=== PATIENT | female | born 1980 | race Caucasian/White ===

== ENCOUNTER → 2017-02-28 | Outpatient (CLI) | payer MEDICAID ==
--- NOTE | 2017-03-01 08:52 | RADIOLOGY REPORT (SQ) ---
EXAM DESCRIPTION: U/S THYROID/SFT TISS HD NECK COMPLETED DATE/TIME: 02/28/2017 5:31 pm REASON FOR STUDY: IODINE-DEFICIENCY RELATED DIFFUSE (ENDEMIC) GOITER E01.0 IODINE-DEFICIENCY RELATE D DIFFUSE (ENDEMIC) GOITER COMPARISON: None. TECHNIQUE: Dynamic and static vail-scale images acquired of the thyroid gland. Selected additional c olor/power Doppler images recorded. All images stored to PACS. LIMITATIONS: None. FINDINGS: The thyroid gland is diffusely enlarged and heterogeneous, right lobe 4.8 x 2.2 x 2.2 cm i n size, left lobe 4.5 x 2 x 2 cm in size. Isthmus 7 mm in thickness. Diffuse increased color flow t hroughout the gland There is an ill-defined hypoechoic nodule in the left midpole thyroid, 7 mm in diameter. IMPRESSION: Diffusely heterogeneous thyroid gland with increased color flow, likely a goiter. Ill-defined hypoechoic nodule left midpole gland 7 mm in size. Follow-up ultrasound in 6 to 12 month s recommended. TECHNICAL DOCUMENTATION: JOB ID: [id number]- All Rights Reserved
== END ==
LOC: RAD 16:54
PROVIDERS: ATTEND Physician Assistant
DX: E01.0 Iodine-deficiency related diffuse (endemic) goiter (principal)
CPT/HCPCS: 76536

== ENCOUNTER → 2017-07-18 | Outpatient (CLI) | payer MEDICAID ==
--- NOTE | 2017-07-18 13:17 | RADIOLOGY REPORT (SQ) ---
EXAM DESCRIPTION: ANKLE LEFT COMPLETE COMPLETED DATE/TIME: 07/18/2017 12:47 pm REASON FOR STUDY: UNSPECIFIED INJURY OF RIGHT FOOT, INITIAL ENCOUNTER S99.921A UNSPECIFIED INJURY O F RIGHT FOOT, INITIAL ENCOUNTER COMPARISON: None. NUMBER OF VIEWS: Three views. TECHNIQUE: AP, lateral, and oblique radiographic images acquired of the left ankle. LIMITATIONS: None. FINDINGS: MINERALIZATION: Normal. BONES: No acute fracture or dislocation. No worrisome bone lesions. Small plantar calcaneal spur. JOINTS: No effusions. SOFT TISSUES: No soft tissue swelling. No foreign body. OTHER: No other significant finding. IMPRESSION: NO RADIOGRAPHIC EVIDENCE OF ACUTE INJURY. TECHNICAL DOCUMENTATION: JOB ID: [id number] [email or web address]- All Rights Reserved
== END ==
LOC: OD 12:24
PROVIDERS: ATTEND Nurse Practitioner Acute Care
DX: S99.921A Unspecified injury of right foot, initial encounter (principal); X58.XXXA Exposure to other specified factors, initial encounter

== ENCOUNTER 2017-08-24 08:23 | Emergency (ER) | payer MEDICAID ==
[2017-08-24 08:30] VITALS: BP 134/68
--- NOTE | 2017-08-24 09:15 | ER Document Report ---
HPI - HPI Pain Level: 4 Context: Patient is a 37-year-old female states she fell last evening. States that her dog got in her way and she tripped. She landed on her left knee and twisted her right ankle. She states that her left knee bothers her the most. She is pain with flexion and extension and weightbearing. She otherwise denies any numbness or tingling distal extremity.States that she is able to bear weight on her right ankle. Otherwise has a history of fibromyalgia. Past Medical History - Social History Smoking Status: Never Smoker Family History: Reviewed & Not Pertinent Vertical Provider Document - CONSTITUTIONAL Agree With Documented VS: Yes Notes: PHYSICAL EXAMINATION: GENERAL: Well-appearing, well-nourished and in no acute distress. Musculoskeletal: Normal range of motion no significant swelling, deformities or ecchymosis.except for left knee with pain with range of motion but able to flex to approximately 90 of the left knee. , no pitting or edema. no cyanosis. Hip non tender, stable. Left ankle no swelling or tenderness NEUROLOGICAL: Cranial nerves grossly intact. Normal speech, normal gait. Normal sensory, motor, and reflex exams. PSYCH: Normal mood, normal affect. SKIN: Warm, No active bleeding - INFECTION CONTROL TRAVEL OUTSIDE OF THE [place] IN LAST 30 DAYS: No - RESPIRATORY O2 Sat by Pulse Oximetry: 100 Course - Re-evaluation Re-evalutation: 08/24/17 09:52 Patient is a 37-year-old female is hemodynamically stable, no acute distress, afebrile. Presentation is consistent with contusion related to fall. Discussed with her that we can place patient on crutches and rest and ice will help with the swelling and discomfort in her knee. no evidence of a septic joint, gout flare, dislocation, or fracture on exam and imaging. Vitals wnl. At this time, I do not see an indication for labs or further imaging.Otherwise told her to follow-up with her primary care physician for repeat imaging if symptoms persist. Patient agrees with plan and stable for discharge home - Vital Signs Vital signs: Temp Pulse Resp BP Pulse Ox 98.1 F 67 16 134/68 H 100 08/24/17 08:29 08/24/17 08:29 08/24/17 08:29 08/24/17 08:29 08/24/17 08:29 - Diagnostic Test Radiology reviewed: Image reviewed, Reports reviewed Procedures - Immobilization Left Knee Pre-Proc Neuro Vasc Exam: Normal Immobilizer type: Jean wrap Performed by: PCT Post-Proc Neuro Vasc Exam: Normal, Unchanged from pre-exam Alignment checked and good: Yes Discharge - Discharge Clinical Impression: Fall Qualifiers: Encounter type: initial encounter Qualified Code(s): W19.XXXA - Unspecified fall, initial encounter Condition: Good Disposition: HOME, SELF-CARE Instructions: Use of Crutches (OM), Ice & Elevation ([facility]), Sprained Knee ([facility]) Additional Instructions: Your x-ray does not show any acute fracture today. You likely have a ligamentous strain. You should continue to take anti-inflammatories such as ibuprofen 600 mg every 6 hours. Continue to apply ice to the area is much your able. Please follow-up with your primary care physician if you do not have improving your symptoms in the next 1-2 weeks. Please return immediately if you develop weakness, numbness, spreading redness from the area, or any other symptoms that are concerning to you. Referrals: POOJA CURTIS PA-C [NO LOCAL MD] - Follow up in 1 week
--- NOTE | 2017-08-24 09:26 | RADIOLOGY REPORT (SQ) ---
EXAM DESCRIPTION: KNEE LEFT 4 VIEW COMPLETED DATE/TIME: 08/24/2017 9:11 am REASON FOR STUDY: fall last night COMPARISON: None. NUMBER OF VIEWS: Four views. TECHNIQUE: AP, lateral, and both oblique radiographic images acquired of the left knee. LIMITATIONS: None. FINDINGS: MINERALIZATION: Normal. BONES: No acute fracture or dislocation. No worrisome bone lesions. JOINT: No effusion. SOFT TISSUES: No soft tissue swelling. No radio-opaque foreign body. OTHER: No other significant finding. IMPRESSION: NEGATIVE STUDY OF THE LEFT KNEE. NO RADIOGRAPHIC EVIDENCE OF ACUTE INJURY. TECHNICAL DOCUMENTATION: JOB ID: [id number] [employer]- All Rights Reserved Reading location - IP/workstation name: [email or web address]
--- NOTE | 2017-08-24 09:27 | RADIOLOGY REPORT (SQ) ---
EXAM DESCRIPTION: ANKLE RIGHT COMPLETE COMPLETED DATE/TIME: 08/24/2017 9:11 am REASON FOR STUDY: fall last night COMPARISON: None. NUMBER OF VIEWS: Three views. TECHNIQUE: AP, lateral, and oblique radiographic images acquired of the right ankle. LIMITATIONS: None. FINDINGS: MINERALIZATION: Normal. BONES: No acute fracture or dislocation. No worrisome bone lesions. JOINTS: No effusions. SOFT TISSUES: No soft tissue swelling. No foreign body. OTHER: No other significant finding. IMPRESSION: NEGATIVE STUDY OF THE RIGHT ANKLE. NO RADIOGRAPHIC EVIDENCE OF ACUTE INJURY. TECHNICAL DOCUMENTATION: JOB ID: [id number] [employer]- All Rights Reserved Reading location - IP/workstation name: [email or web address]
== END 2017-08-24 10:02 | disposition home or self-care (01) ==
LOC: ER 08:23
DX: M25.562 Pain in left knee (principal); W01.0XXA Fall on same level from slipping, tripping and stumbling without subsequent striking against object, initial encounter
CPT/HCPCS: 99283